=== PATIENT | female | born 2000 | race African-American/Black ===

== ENCOUNTER 2019-02-04 12:00 | Observation (INO) ==
[2019-02-04] MEDS ORDERED: DEXTROSE 5%-LACTATED RINGERS 1,000 ML IV PRN (12:23)
[2019-02-04 14:13] LABS: Urine Bilirubin Negative (NEGATIVE); Urine Blood Negative /ul (NEGATIVE); Urine Ketone Negative (NEGATIVE); Urine Nitrite Negative (NEGATIVE); Urine Protein Negative (NEGATIVE); Urine Specific Gravity <=1.005 SP.GR. (1.005-1.010); Urine Urobilinogen Normal (NORMAL)
[2019-02-04] MEDS ORDERED: RHO(D) IMMUNE GLOBULIN 1,500 UNIT SYRINGE IM ONE (14:18)
[2019-02-04 14:37] LABS: Urine Appearance Clear (CLEAR); Urine Bacteria TRACE; Urine Color Pale Yellow; Urine RBC None Seen /hpf (0-5); Urine WBC None Seen /hpf (0-5)
--- NOTE | 2019-02-04 18:44 | HP ---
Chief Complaint - Chief Complaint Date of Service: 02/04/19 Time of Service: 12:30 Chief Complaint: maternal trauma/fall History of Present Illness: This patient is a 18 year old at 30 3/7 weeks EGA by confirmed dates. She presents with complaints of maternal trauma/fall. [place] became dizzy and lightheaded and fell. She thinks she may have lost consciousness briefly. She denies similar episodes in the past. No uterine tenderness to palpation, or complaints of abdominal or uterine pain, or other pain. No bleeding or leaking. She denies n/v/d/c/SOB/CP/fever/chills/cough/cold/flu-like symptoms/[place]/RUQ pain/PRITI/dysuria/frequency/hesitancy PNC with Dr. Eric Problems include ADHD and depression, for which she take Guanfacine and Zoloft. She has taken these for the last several years. Past medical history, family history and social history were reviewed. They are as documented on this record and are unchanged. REVIEW OF SYSTEMS: 11 point review of systems completed. All are negative except pertinent positives which are described in the HPI section. CONSTITUTIONAL: Negative HEENT: Negative CARDIOVASCULAR: Negative RESPIRATORY: Negative GASTROINTESTINAL: As above GENITOURINARY: As above OB: As above PSYCH: Negative NEURO: Negative HEM/LYMPH: Negative MUSCULOSKELETAL: Negative SKIN: Negative PHYSICAL EXAM: GENERAL: Well developed, well nourished female in no acute distress HEENT: Normocephalic, Atraumatic RESPIRATORY: Non-labored respirations HEART: Regular rate and rhythm ABDOMEN: Gravid, soft, non-tender, non-distended PELVIS: Cervix: closed, feels a little shorter than usual Contractions: Irritable pattern seen on the NST FHT's: NST initially reactive, but a spontaneous decel occurred after a few hours of mointoring that lasted about 4 minutes EXTREMITIES: No significant edema NEURO: No focal motor or sensory deficits noted PSYCH: Cooperative, appropriate mood LABS: ASSESSMENT/PLAN: 1. 18 yo at 30 weeks and 3 days gestation 2. Maternal fall after became dizzy and passed out - no similar episodes in the past 3. Unclear as to why she became faint - possibly dehydration - received 1L of fluid resuscitation. 4. Uterine irritability following the fall - Kleihauer Betke given and additional Rhogam (A negative). 5. Spontaneous deceleration (possibly two), lasting about 4 minutes, BPP done (12/11 - no breathing after 40 minutes), ILSA 12, and TV cervical length (3.1cm - lower limit of normal) 6. Because of the uterine irritability and spontaneous decel following trauma, 24 hours of monitoring is recommended - admitted for observation Medical History (Updated 01/12/19 @ 09:13 by Jacqueline Lacy RN) ADHD (Chronic) Bipolar disorder (Chronic) Anemia Onset Date: 01/11/19 w/ ADHD (attention deficit hyperactivity disorder) Onset Date: Unknown Bipolar 1 disorder Onset Date: Unknown Body piercing Onset Date: Unknown Tattoos Onset Date: Unknown Surgical History: Surgical History (Updated 03/31/18 @ 13:21 by Eileen Christianson CMA) No history of previous surgery Family History: Family History (Updated 08/30/18 @ 09:21 by Jacqueline Lacy RN) Diabetes Sister Mental Illness Sister Mental Retardation Sister d/t alcohol syndrome Social History: (Last Updated 01/24/19 @ 09:29 by Efrem Eric DO) Social History: adopted: Yes senior living: No Marital status: household members: spouse, other number of children: 0 current occupational status: unemployed current occupation: [employer] current occupational exposures/hazards: No Highest education level completed: high school graduate Sexually Active: Yes Service: No Tobacco: Smoking Status: Never smoker Alcohol: alcohol intake: never Substance Use: substance use type: does not use Dietary Habits: caffeine: Yes caffeine comment: 1/week Type: carbonated beverages Exercise: frequency: does not exercise Patricia/Quaker: agree to transfusion: Yes Immunizations: IMMUNIZATION HX Immunizations Up to Date Yes History of Influenza Vaccine Yes Hx Pneumococcal Vaccination More Information Required Allergies/Adverse Reactions: Allergies Allergy/AdvReac Type Severity Reaction Status Date / Time lisdexamfetamine AdvReac Other Verified 01/21/19 13:49 [From Rhett] Home Medications: HOME MEDICATIONS guanFACINE HCL [Guanfacine HCl] 2 mg PO BID 12/30/17 [Last Taken 02/03/19 21:00] sertraline 100 mg tablet 100 mg PO DAILY 08/30/18 [Last Taken 02/03/19 21:00] ferrous sulfate 325 mg (65 mg iron) tablet 325 mg PO DAILY #30 tab 01/12/19 [Last Taken 02/03/19 21:00] Vits96/Iron Fum/Folic [ S] 1 tab PO DAILY 02/04/19 [Last Taken Unknown] Exam - Exam Vital Signs: Vital Signs - Last Taken Temp 37.1 C 02/04/19 12:15 Pulse 84 02/04/19 12:15 Resp 18 02/04/19 12:15 BP 113/56 02/04/19 12:15 Pulse Ox 96 02/04/19 12:15 Diagnostic Studies: Abnormal Lab Results 02/04/19 Range/Units 13:35 Urine Glucose (UA) 500 H (NEGATIVE) mg/dL Laboratory Results Pale yellow 02/04/19 13:35 Clear (CLEAR) 02/04/19 13:35 6.0 pH (5.0-7.0) 02/04/19 13:35 Ur Specific [place] <=1.005 SP.GR. (1.005-1.010) 02/04/19 13:35 Negative mg/dL (NEGATIVE) 02/04/19 13:35 500 mg/dL (NEGATIVE) H 02/04/19 13:35 Negative mg/dL (NEGATIVE) 02/04/19 13:35 Negative /ul (NEGATIVE) 02/04/19 13:35 Negative (NEGATIVE) 02/04/19 13:35 Negative mg/dl (NEGATIVE) 02/04/19 13:35 Normal EU/dl (NORMAL) 02/04/19 13:35 Ur Leukocyte Esterase Negative /ul (NEGATIVE) 02/04/19 13:35 None seen /hpf (0-5) 02/04/19 13:35 None seen /hpf (0-5) 02/04/19 13:35 Ur Epithelial Cells 0-5 /hpf (0-5) 02/04/19 13:35 Trace (NONE) 02/04/19 13:35 No culture indicated 02/04/19 13:35 Screen Negative (Negative) 02/04/19 13:05 Plan: Admit for observation (uterine irritability following maternal trauma - verbal orders given Assessment/Plan - Assessment/Plan (1) 30 weeks gestation of Problem: Acute (2) NST (non-stress test) nonreactive Problem: Acute (3) ADHD Problem: Chronic (4) Bipolar disorder Problem: Chronic (5) Dizziness Problem: Acute (6) Hypovolemia Problem: Acute (7) Traumatic injury during in third trimester Problem: Acute (8) Premature uterine contractions causing threatened premature labor in third trimester Problem: Acute
[2019-02-05 01:10] VITALS: BP 107/57
--- NOTE | 2019-02-05 05:37 | PN ---
Progess Note - Interim Date: 02/05/19 Time: 05:34 Narrative: 02/05/19 05:34 Stable overnight. No leaking, no bleeding. BPP yesterday 12/11 (no breathing). NST today is reactive with good variability at with a baseline of 135 and accelerations from there. No decelerations. No abdominal discomfort. Usual precautions reviewed. See Dr. Eric in clinic this Thursday for follow- up. - Results and Findings: Lab/Microbiology results last 24 hrs: Abnormal/Pending Laboratory Last 24 HRS 02/04/19 13:35 Urine Glucose (UA) 500 H - Assessments/Findings (1) 30 weeks gestation of Problem: Acute (2) NST (non-stress test) nonreactive Problem: Acute (3) ADHD Problem: Chronic (4) Bipolar disorder Problem: Chronic (5) Dizziness Problem: Acute (6) Hypovolemia Problem: Acute (7) Traumatic injury during in third trimester Problem: Acute (8) Premature uterine contractions causing threatened premature labor in third trimester Problem: Acute
--- NOTE | 2019-02-05 05:44 | DS ---
(1) 30 weeks gestation of Problem: Acute (2) NST (non-stress test) nonreactive Problem: Resolved (3) ADHD Problem: Chronic (4) Bipolar disorder Problem: Chronic (5) Dizziness Problem: Acute (6) Hypovolemia Problem: Acute (7) Traumatic injury during in third trimester Problem: Acute (8) Premature uterine contractions causing threatened premature labor in third trimester Problem: Acute Description of Stay: Admitted with a fall at 30 weeks. Observed overnight because of uterine irritability. No changes in cervix, no pain, no further dizziness. Did have one episode of a subtle deceleration on the NST, but the remainder of the monitoring over many hours was reassuring. BPP 6/8 (no breathing). Amniotic fluid adequate. Maternal vitals stable, no signs of injury. Discharge home with mom and baby in stable condition Procedures Performed: none Results and Findings: Lab Pending Results 02/04/19 13:05: Screen Negative 02/04/19 13:35: Urine Color Pale yellow, Urine Appearance Clear, Urine pH 6.0, Ur Specific [place] <=1.005, Urine Protein Negative, Urine Glucose (UA) 500 H, Urine Ketones Negative, Urine Blood Negative, Urine Nitrate Negative, Urine Bilirubin Negative, Urine Urobilinogen Normal, Ur Leukocyte Esterase Negative, Urine RBC None seen, Urine WBC None seen, Ur Epithelial Cells 0-5, Urine Bacteria Trace, Urine Culture Comments No culture indicated Discharge Location: Home Disposition: Home self-care Condition: Good Face to Face Encounter completed per [facility] Guidelines: Yes Discharge Activity: Activity as tolerated Discharge Diet: General/regular food Referrals: Efrem Eric DO [Primary Care Provider] - Additional Patient Instructions (free text): Usual reasons to return were reviewed. Has appointment wt Dr. Eric on Thursday that she should keep. Complete Home Medications List: Complete Home Medication List: guanFACINE HCL [Guanfacine HCl] 2 mg PO BID 12/30/17 sertraline 100 mg tablet 100 mg PO DAILY 08/30/18 ferrous sulfate 325 mg (65 mg iron) tablet 325 mg PO DAILY #30 tab 01/12/19 Vits96/Iron Fum/Folic [ S] 1 tab PO DAILY 02/04/19
== END 2019-02-05 05:45 | disposition home or self-care (01) ==
LOC: OB 12:00 → OBCLINIC 12:00 → OB 02-05 03:26
PROVIDERS: ADMIT Obstetrics & Gynecology; ATTEND Obstetrics & Gynecology
CPT/HCPCS: 59025; 76817; 76818; 76819; 81001; 85460; 96372; G0378; J2790

== ENCOUNTER 2019-04-06 23:42 | Inpatient (IN) ==
[2019-04-07] MEDS ORDERED: ONDANSETRON 4 MG TAB.RAPDIS PO PRN (00:06)
[2019-04-07] MEDS ORDERED: RINGER'S SOLUTION,LACTATED 1,000 ML IV ONE (00:06)
[2019-04-07] MEDS ORDERED: OXYTOCIN/DEXTROSE 5%-WATER 30 UNITS/500 ML BAG IV ONE ×2 (00:06→14:21)
[2019-04-07] MEDS ORDERED: PENICILLIN G POTASSIUM 5 MILLIONUNT in DEXTROSE 5 % IN WATER 100 ML IV ONE ×2 (00:09)
[2019-04-07] MEDS ORDERED: PENICILLIN G POTASSIUM 2.5 MILLIONUNT in DEXTROSE 5 % IN WATER 100 ML IV SCH ×2 (00:15)
[2019-04-07] MEDS: DEXTROSE 5%-LACTATED RINGERS 1,000 ML IV PRN ×2 (00:48→11:08)
[2019-04-07 00:53] LABS: Cocaine Ur Negative (NEGATIVE); Urine Barbiturate Negative (NEGATIVE); Urine Benzodiazepines Negative (NEGATIVE); Urine Opiates Negative (NEGATIVE); Urine PCP Negative (NEGATIVE); Urine THC Negative (NEGATIVE)
[2019-04-07] MEDS: PENICILLIN G POTASSIUM 2.5 MILLIONUNT in DEXTROSE 5 % IN WATER 100 ML IV SCH ×6 (05:06→12:45)
[2019-04-07] MEDS ORDERED: BUPIVACAINE HCL/0.9 % NACL/PF 250 ML EP PRN (06:16)
[2019-04-07] MEDS ORDERED: NALOXONE HCL 1 MG/1 ML SYRG IV PRN (06:16)
[2019-04-07] MEDS ORDERED: ONDANSETRON HCL/PF 2 MG/ML VIAL IV PRN (06:16)
[2019-04-07] MEDS ORDERED: fentaNYL CITRATE/PF 50 MCG/ML AMPUL IT SCH (06:30)
[2019-04-07] MEDS ORDERED: LIDOCAINE HCL/EPINEPHRINE 20 ML VIAL ONE (06:46)
--- NOTE | 2019-04-07 07:28 | ANES ---
Anesthesia Pre Procedure Eval Vitals/Labs: Last Vital Signs Temp 35.9 C L 04/07/19 00:16 Pulse 86 04/07/19 00:16 Resp 18 04/07/19 00:16 BP 110/70 04/07/19 00:16 Pulse Ox 96 04/07/19 00:16 HOME MEDICATIONS guanFACINE HCL [Guanfacine HCl] 2 mg PO BID 12/30/17 [Last Taken 04/06/19 09:00] sertraline 100 mg tablet 100 mg PO DAILY 08/30/18 [Last Taken 04/06/19 09:00] ferrous sulfate 325 mg (65 mg iron) tablet 325 mg PO DAILY #30 tab 01/12/19 [Last Taken 04/05/19] Allergies/Adverse Reactions: Allergies Allergy/AdvReac Type Severity Reaction Status Date / Time lisdexamfetamine AdvReac Intermediate Other Verified 04/04/19 09:04 [From Rhett] - Planned Procedure Planned Procedure: Medication List Reviewed:: Yes Allergies Verified: Yes Medical History (Updated 03/04/19 @ 12:48 by Efrem Eric DO) ADHD (Chronic) Bipolar disorder (Chronic) Anemia Onset Date: 01/11/19 w/ ADHD (attention deficit hyperactivity disorder) Onset Date: Unknown Bipolar 1 disorder Onset Date: Unknown Body piercing Onset Date: Unknown Tattoos Onset Date: Unknown Surgical History (Updated 02/04/19 @ 18:43 by Berkley Lombardo MD) No history of previous surgery Family History (Updated 08/30/18 @ 09:21 by Jacqueline Lacy RN) Sister Mental Illness Mental Retardation d/t alcohol syndrome Diabetes - Family Anesthesia History Family History:: no untoward family reactions to anesthesia - Airway/Neck/Teeth Within Normal Limits:: Yes Teeth Condition: intact Neck Exam: full range of motion Mallampatti Score: 2 Thyromental (T-M) distance: > 6 cm Mandibulo Hyoid distance: > 3 cm - Respiratory Respiratory Physical: lungs clear Smoking Status: Never smoker Sleep Apnea currently treated: No Sleep Apnea by current assessment: No - Cardiovascular Tolerate Activity: Good Heart Sounds: S1 & S2, Regular - Anesthesia Assessment and Plan ASA Class: PS, II, E Anesthesia Type Plan: Epidural Planned difficult intubation/equipment available: No
--- NOTE | 2019-04-07 07:30 | ANES ---
Post Anesthesia Discharge - Transfer of Care Transfer of Care handoff given to nurse: Yes - Anesthesia Post Op Note Anesthesia Post Op Note: care transferred to OB RN
--- NOTE | 2019-04-07 07:30 | ANES ---
Post Anesthesia Assessment - Vital Signs Vitals: Last Vital Signs Temp 35.9 C L 04/07/19 00:16 Pulse 86 04/07/19 00:16 Resp 18 04/07/19 00:16 BP 110/70 04/07/19 00:16 Pulse Ox 96 04/07/19 00:16 Airway Patency: Normal - Mental Status Level Of Consciousness: Awake - Pain Level Pain Score: 1 - N/V Assessment Nausea/Vomiting Presence: None Dehydration:: No
--- NOTE | 2019-04-07 07:32 | ANES ---
Anesthesia Procedure Note Procedure Note: ANESTHESIA PROCEDURE NOTE Date of Procedure: 04/07/2019 Time of procedure: . Performed by: Burton Cisneros CRNA Statistical Programmer: None. Preprocedure diagnosis: Active labor. Post procedure diagnosis: Same. Procedure: Insertion of labor epidural. Indications: The patient is a 18-year-old prima para female in active labor requesting labor epidural for pain management. Findings: See below. Details of the procedure: The patient was placed in a sitting position. Back was prepped with DuraPrep. Patient was then draped in a sterile fashion. Lidocaine 1% was infiltrated to the skin and subcutaneous tissues at the level of the L3 4 interspace. The epidural space was identified using a 18-gauge Tuohy needle with [id number] technique. 20 mcg fentanyl was given intrathecally using a 27 ga. spinal needle. Epidural catheter was inserted without difficulty. Negative test dose was elicited using 5 mL of 1.5% preservative-free lidocaine plus epinephrine 1 200,000. The epidural catheter was then taped and secured in place. EBL: Minimal. Fluids: N/A. Specimen: N/A. Post procedure condition: The patient tolerated the procedure well. No complications were noted. Thank you for this consultation. Bright CRNA
--- NOTE | 2019-04-07 09:22 | HP ---
Chief Complaint - Chief Complaint Date of Service: 04/07/19 Time of Service: 09:21 Chief Complaint: elective induction of labor History of Present Illness: 18 yo at 39 2/7 weeks admitted for elective induction of labor. This complicated by anemia, ADHD, and bipolar d/o. Rh negative Rubella immune GBS positive. Medical History (Updated 04/07/19 @ 17:00 by Eulalia Lamar RN) ADHD (Chronic) Bipolar disorder (Chronic) Anemia Onset Date: 01/11/19 w/ ADHD (attention deficit hyperactivity disorder) Onset Date: Unknown Bipolar 1 disorder Onset Date: Unknown Body piercing Onset Date: Unknown Tattoos Onset Date: Unknown Surgical History: Surgical History (Updated 02/04/19 @ 18:43 by Berkley Lombardo MD) No history of previous surgery Family History: Family History (Updated 08/30/18 @ 09:21 by Jacqueline Lacy RN) Sister Mental Illness Mental Retardation d/t alcohol syndrome Diabetes Social History: (Last Reviewed 04/07/19 @ 18:48 by Efrem Eric DO) Social History: adopted: Yes penitentiary: No Marital status: household members: spouse, other number of children: 0 current occupational status: unemployed current occupation: [employer] current occupational exposures/hazards: No Highest education level completed: high school graduate Sexually Active: Yes Service: No Tobacco: Smoking Status: Never smoker Alcohol: alcohol intake: never Substance Use: substance use type: does not use Dietary Habits: caffeine: Yes caffeine comment: 1/week Type: carbonated beverages Exercise: frequency: does not exercise Patricia/Confucianism: agree to transfusion: Yes Review Of Systems (GEN) - Review of Systems Generalized/Overall Review: Present: No Symptoms Reported EENTM: Present: No Symptoms Reported Respiratory: Present: No Symptoms Reported Cardiac: Present: No Symptoms Reported Abdominal: Present: No Symptoms Reported Genitourinary: Present: No Symptoms Reported Musculoskeletal: Present: No Symptoms Reported Neurological: Present: No Symptoms Reported Skin: Present: No Symptoms Reported Endocrine: Present: No Symptoms Reported Immunizations: IMMUNIZATION HX Immunizations Up to Date Yes History of Influenza Vaccine Yes Hx Pneumococcal Vaccination More Information Required Allergies/Adverse Reactions: Allergies Allergy/AdvReac Type Severity Reaction Status Date / Time lisdexamfetamine AdvReac Intermediate Other Verified 04/04/19 09:04 [From Rhett] Home Medications: HOME MEDICATIONS guanFACINE HCL [Guanfacine HCl] 2 mg PO BID 12/30/17 [Last Taken 04/06/19 09:00] sertraline 100 mg tablet 100 mg PO DAILY 08/30/18 [Last Taken 04/06/19 09:00] ferrous sulfate 325 mg (65 mg iron) tablet 325 mg PO DAILY #30 tab 01/12/19 [Last Taken 04/05/19] Exam - Exam Vital Signs: Vital Signs - Last Taken Temp 35.9 C L 04/07/19 00:16 Pulse 86 04/07/19 00:16 Resp 18 04/07/19 00:16 BP 110/70 04/07/19 00:16 Pulse Ox 96 04/07/19 00:16 Constitutional: Present: Alert, Oriented x3, Cooperative, No distress ENT Exam: Present: hearing grossly normal Respiratory: Present: lungs clear, no respiratory distress Cardiovascular/Chest: Present: regular rate, rhythm Abdomen: Present: soft, nontender, no rebound tenderness, other - gravid /Rectal: Present: Other - cervix 1-2/60/-2 Extremity: Present: no pedal edema, no calf tenderness Skin Exam: Present: normal color, warm/dry, no cyanosis Neurologic: Present: normal mood/affect, oriented x 3 Appearance: Present: appropriate appearance, appropriate insight Eye contact: Present: cooperative, good eye contact Thoughts: Present: normal mood /affect Diagnostic Studies: Laboratory Results Negative (NEGATIVE) 04/07/19 00:12 Negative (NEGATIVE) 04/07/19 00:12 Ur Phencyclidine Scrn Negative (NEGATIVE) 04/07/19 00:12 Urine Amphetamine Negative (NEGATIVE) 04/07/19 00:12 U Benzodiazepines Scrn Negative (NEGATIVE) 04/07/19 00:12 Negative (NEGATIVE) 04/07/19 00:12 Negative (NEGATIVE) 04/07/19 00:12 NST reactive. Assessment/Plan - Assessment/Plan (1) Elective induction of labor planned Assessment: Admit for elective induction of labor. Epidural PRN. IV PCN per GBS protocol. Problem: Acute (2) Group beta Strep positive Problem: Acute (3) Bipolar disorder Problem: Chronic Qualifiers: Active/Remission status: in partial remission Most recent bipolar episode type: depressed Qualified Code(s): F31.75 - Bipolar disorder, in partial remission, most recent episode depressed (4) ADHD Problem: Chronic Qualifiers: Attention deficit-hyperactivity disorder type: predominantly inattentive Qualified Code(s): F90.0 - Attention-deficit hyperactivity disorder, predominantly inattentive type
--- NOTE | 2019-04-07 09:24 | PN ---
Progess Note - Interim Date: 04/07/19 Time: 09:22 Narrative: 04/07/19 09:22 Patient comfortable with epidural Vital signs stable. Pitocin at 6 mu/min. FHT: 120 baseline, reassuring contractions q 2-3 min Cervix: 4/90/-2, AROM-clear Impression: Intrauterine at 39 2/7 weeks, elective induction of labor, progressing well Plan: Continue present plan
--- NOTE | 2019-04-07 12:51 | PN ---
Progess Note - Interim Date: 04/07/19 Time: 12:49 Narrative: 04/07/19 12:49 Patient comfortable with epidural Vital signs stable. Pitocin at 1 mu/min. FHT: 140 baseline, reassuring contractions q 2-5 min Cervix: Complete/+2 Impression: Intrauterine at 39 2/7 weeks beginning second stage of labor Plan: Anticipate normal spontaneous vaginal delivery soon.
--- NOTE | 2019-04-07 14:20 | OR ---
Operative Report - Dictated Report Narrative: Spontaneous vaginal delivery of vigorously crying viable female at 1349 on 04/07/2019 with Apgars 9 and 9, weighing 3170 g in JOSE ARMANDO position. Cord clamping delayed approximately 1 minute Placenta delivered complete, intact, with three vessel cord Estimated blood loss: 300 mL due to uterine atony which responded to Pitocin 30 milliunits/min, uterine massage, and Cytotec 600 mcg rectally. Anesthesia: Epidural Lacerations: Second-degree vaginal laceration (3 cm) repaired with 3-0 Vicryl Rapide. History for MU History for Definition: * The number of deliveries resulting in a live the patient experienced prior to current hospitalization * The previous delivery of live twins or any live multiple gestation is considered one live event. *If primagravida or nulliparous is documented select zero for the number of previous live births. Live Events: Live Events: 0
[2019-04-07] MEDS ORDERED: GLYCERIN/WITCH HAZEL LEAF 40 APPL BOX TP PRN (14:21)
[2019-04-07] MEDS ORDERED: SENNOSIDES 8.6 MG TABLET PO PRN (14:21)
[2019-04-07] MEDS ORDERED: BISACODYL 10 MG SUPP.RECT RC PRN (14:21)
[2019-04-07] MEDS ORDERED: IBUPROFEN 800 MG TABLET PO PRN (14:21)
[2019-04-07] MEDS ORDERED: BENZOCAINE/MENTHOL 81 SPRAY CAN TP PRN (14:21)
[2019-04-07] MEDS ORDERED: HYDROCORTISONE 30 APPL TUBE TP PRN (14:21)
[2019-04-07] MEDS ORDERED: MISOPROSTOL 200 MCG TABLET RC SCH (14:30)
[2019-04-07] MEDS: IBUPROFEN 800 MG TABLET PO PRN (16:29)
[2019-04-07] MEDS: oxyCODONE HCL/ACETAMINOPHEN 1 TAB TABLET PO PRN (16:30)
[2019-04-07] MEDS ORDERED: RHO(D) IMMUNE GLOBULIN 1,500 UNIT SYRINGE IM ONE ×2 (19:16→20:30)
[2019-04-07] MEDS: DOCUSATE SODIUM 100 MG CAPSULE PO SCH (20:34)
[2019-04-07] MEDS: GUANFACINE HCL 1 MG PO SCH (21:51)
--- NOTE | 2019-04-08 04:06 | PN ---
Subjective - Date and Time Seen Date: 04/08/19 Time: 04:05 Objective - Vitals Vitals: Last Vital Signs Temp 36.2 C 04/08/19 01:16 Pulse 80 04/08/19 01:16 Resp 16 04/08/19 01:16 BP 129/74 04/08/19 01:16 Pulse Ox 100 04/08/19 01:16 Patient was having difficulty voiding and required straight cath x2 but 3 hours ago was able to void 700 mL without difficulty. Lochia wnl abdomen - soft, nontender Uterus -firm, at umbilicus - 1 no calf tenderness Impression: day #1 - s/p spontaneous vaginal delivery. Plan: Continue routine care Cauti Physician Documentation - Urinary Catheter Management Urethral (Peterson) Date of Insertion: 04/07/19 Time of Insertion: 07:45 Date of Removal: 04/07/19 Time of Removal: 13:40 Assessment/Plan - Problems/Diagnosis (1) Elective induction of labor planned Problem: Acute (2) Group beta Strep positive Problem: Acute (3) Bipolar disorder Problem: Chronic Qualifiers: Active/Remission status: in partial remission Most recent bipolar episode type: depressed Qualified Code(s): F31.75 - Bipolar disorder, in partial remission, most recent episode depressed (4) ADHD Problem: Chronic Qualifiers: Attention deficit-hyperactivity disorder type: predominantly inattentive Qualified Code(s): F90.0 - Attention-deficit hyperactivity disorder, pre dominantly inattentive type
[2019-04-08] MEDS: FERROUS SULFATE 325 MG TABLET PO SCH (08:32)
[2019-04-08] MEDS: PRENATAL VITS96/IRON FUM/FOLIC 1 TAB TABLET PO SCH (08:32)
[2019-04-08] MEDS: DOCUSATE SODIUM 100 MG CAPSULE PO SCH ×2 (08:33→20:49)
[2019-04-08] MEDS: oxyCODONE HCL/ACETAMINOPHEN 1 TAB TABLET PO PRN (08:33)
[2019-04-08] MEDS: IBUPROFEN 800 MG TABLET PO PRN (08:33)
[2019-04-08] MEDS: GUANFACINE HCL 1 MG PO SCH ×2 (09:01→20:49)
[2019-04-08] MEDS: SERTRALINE HCL 100 MG TABLET PO SCH (09:01)
[2019-04-09 00:50] VITALS: BP 116/61
[2019-04-09] MEDS: FERROUS SULFATE 325 MG TABLET PO SCH (10:01)
[2019-04-09] MEDS: GUANFACINE HCL 1 MG PO SCH (10:01)
[2019-04-09] MEDS: SERTRALINE HCL 100 MG TABLET PO SCH (10:01)
[2019-04-09] MEDS: DOCUSATE SODIUM 100 MG CAPSULE PO SCH (10:01)
[2019-04-09] MEDS: IBUPROFEN 800 MG TABLET PO PRN (10:01)
--- NOTE | 2019-04-09 11:02 | PN ---
Subjective - Date and Time Seen Date: 04/09/19 Time: 11:01 Objective - Vitals Vitals: Last Vital Signs Temp 36.2 C 04/09/19 00:48 Pulse 63 04/09/19 00:48 Resp 16 04/09/19 00:48 BP 116/61 04/09/19 00:48 Pulse Ox 97 04/08/19 19:53 Patient denies complaints. Lochia wnl abdomen - soft, nontender Uterus -firm, at umbilicus - 2 no calf tenderness Impression: day #2 - s/p spontaneous vaginal delivery. Plan: Routine discharge instructions Cauti Physician Documentation - Urinary Catheter Management Urethral (Peterson) Date of Insertion: 04/07/19 Time of Insertion: 07:45 Date of Removal: 04/07/19 Time of Removal: 13:40 Assessment/Plan - Problems/Diagnosis (1) Elective induction of labor planned Problem: Acute (2) Group beta Strep positive Problem: Acute (3) Bipolar disorder Problem: Chronic Qualifiers: Active/Remission status: in partial remission Most recent bipolar episode type: depressed Qualified Code(s): F31.75 - Bipolar disorder, in partial remission, most recent episode depressed (4) ADHD Problem: Chronic Qualifiers: Attention deficit-hyperactivity disorder type: predominantly inattentive Qualified Code(s): F90.0 - Attention-deficit hyperactivity disorder, predominantly inattentive type
[2019-04-09] MEDS: PRENATAL VITS96/IRON FUM/FOLIC 1 TAB TABLET PO SCH (13:52)
== END 2019-04-09 13:30 | disposition home or self-care (01) | DRG 806 ==
LOC: OB 23:42
PROVIDERS: ADMIT Obstetrics & Gynecology; ATTEND Obstetrics & Gynecology
CPT/HCPCS: 59025; 80307; 85460; J2790